=== PATIENT | female | born 1985 | race Caucasian/White ===

== ENCOUNTER 2017-11-20 19:48 | Emergency (ER) | payer BC, MEDICAID ==
[2017-11-20] MEDS ORDERED: NORMAL SALINE 1000 ML 1,000 ML IV ONE ×2 (20:34→22:00)
[2017-11-20] MEDS ORDERED: ACETAMINOPHEN 325 MG TABLET PO ONE (20:34)
[2017-11-20 21:16] LABS: HEMOGLOBIN 9.7 g/dL (12.0-15.5); MEAN CORPUSCULAR HEMOGLOBIN 31.6 pg (27.0-33.4); MEAN CORPUSCULAR HGB CONC 33.6 g/dL (32.0-36.0); MEAN CORPUSCULAR VOLUME 94 fl (80-97); PLATELET COUNT 120 10^3/uL (150-450); RED BLOOD COUNT 3.08 10^6/uL (3.72-5.28); RED CELL DISTRIBUTION WIDTH 13.9 % (11.5-14.0)
[2017-11-20 21:33] LABS: ABSOLUTE LYMPHOCYTES# (MANUAL) 0.3 10^3/uL (0.5-4.7); ABSOLUTE MONOCYTES # (MANUAL) 0.4 10^3/uL (0.1-1.4); ABSOLUTE NEUTROPHILS# (MANUAL) 10.2 10^3/uL (1.7-8.2); BASOPHILS % (MANUAL) 0 % (0-2); EOSINOPHILS % (MANUAL) 0 % (0-6); LYMPHOCYTES % (MANUAL) 3 % (13-45); MONOCYTES % (MANUAL) 4 % (3-13); SEGMENTED NEUTROPHILS % (MAN) 81 % (42-78); TOTAL CELLS COUNTED 100
[2017-11-20 21:37] LABS: OVALOCYTES SLIGHT; POIKILOCYTOSIS SLIGHT; POLYCHROMASIA SLIGHT; TOXIC GRANULATION 1+; TOXIC VACUOLATION PRESENT
[2017-11-20 21:38] LABS: BAND NEUTROPHILS % (MANUAL) 12 % (3-5); PLATELET COMMENT DECREASED
--- NOTE | 2017-11-20 22:01 | ER Document Report ---
ED General - General Chief Complaint: Pain All Over Stated Complaint: BODY PAIN, JOINT PAIN Cannot obtain history due to: Unstable vital signs, Altered mental status Notes: Patient is a 32-year-old female with a past medical history of endocarditis approximately 5 years ago that was treated with IV antibiotics but never followed through for a plan to eventually replace her valve (patient is uncertain of the exact valve that was involved) who presents with diffuse body pain. Patient admits to ongoing IV heroin abuse. The patient states that she is as well but does not know how far along she is and does not know when her last menstrual period occurred. She is unable to provide any additional meaningful history, is listless, lethargic, extremely ill in appearance. TRAVEL OUTSIDE OF THE [place] IN LAST 30 DAYS: No - Related Data Allergies/Adverse Reactions: vancomycin Allergy (Verified 06/25/16 02:39) Past Medical History - General Information source: Patient - Social History Smoking Status: Current Every Day Smoker Frequency of alcohol use: Social Drug Abuse: Heroin Lives with: Spouse/Significant other Family History: Reviewed & Not Pertinent Patient has suicidal ideation: No Patient has homicidal ideation: No Renal/ Medical History: Denies: Hx Peritoneal Dialysis Review of Systems - Review of Systems Notes: Constitutional: Positive for fever. HENT: Negative for sore throat. Eyes: Negative for visual changes. Cardiovascular: Negative for chest pain. Respiratory: Positive for shortness of breath. Gastrointestinal: Negative for abdominal pain, vomiting or diarrhea. Genitourinary: Negative for dysuria. Musculoskeletal: Positive for bilateral lower extremity edema Skin: Negative for rash. Neurological: Negative for headaches, weakness or numbness. 10 point ROS negative except as marked above and in HPI. Physical Exam - Vital signs Vitals: Temp Pulse Resp BP Pulse Ox 98.8 F 119 H 18 90/45 L 96 11/20/17 19:59 11/20/17 19:59 11/20/17 19:59 11/20/17 19:59 11/20/17 19:59 Interpretation: Hypotensive, Tachycardic Notes: PHYSICAL EXAMINATION: GENERAL: Appears extremely unwell, lethargic HEAD: Atraumatic, normocephalic. EYES: Pupils equal round and reactive to light, extraocular movements intact, sclera anicteric, conjunctiva are normal. ENT: nares patent, dry oropharynx NECK: Normal range of motion, JVD is present LUNGS: Moderate tachypnea, no respiratory distress. Slightly diminished breath sounds on the right relative to the left. Diminished at the bases bilaterally. HEART: Regular tachycardia, 2 out of 6 systolic ejection murmur ABDOMEN: Soft, normoactive bowel sounds. No guarding, no rebound. No masses appreciated. EXTREMITIES: 4+ pitting edema in the bilateral lower extremities that is equal and symmetric. NEUROLOGICAL: No focal neurological deficits. Moves all extremities spontaneously and on command. PSYCH: Lethargic SKIN: Cool, clammy skin. Course - Re-evaluation Re-evalutation: 11/20/17 22:05 Patient presents extremely ill in appearance, tachycardic, listless, hypotensive , dehydrated on examination. Bedside ultrasound of her abdomen does reveal that she has at least a 20 week gestation with active heart rate and movement. The patient has received no care for this and she is unaware how she currently is. She continues to actively abuse IV heroin. Patient has 4+ pitting edema in the bilateral lower extremities extremely worrisome for failure as her does not appear to be far enough along to present with this degree of edema. Patient is extremely scarred down virtually everywhere from her extensive history of IV drug use making IV access extremely difficult to obtain. I have obtained a left external jugular vein for access and we have begun to be able to obtain blood. A portable formal OB ultrasound will be obtained. I discussed this case with Dr. Norris the STOCK PLAN ADMINISTRATOR on-call who is recommended transfer given this patient' s poor status and high level concern for possible endocarditis. Frequent reassessments will be completed. Patient is critically ill, Will continue to monitor closely. 11/20/17 22:55 I am withholding any further fluids at this point as the patient has not been fluid responsive in terms of her mild hypotension and her chest x-ray she also has marked cardiomegaly with associated pulmonary edema. Her proBNP has returned markedly elevated at 8500 and her troponin is likewise elevated at 0.7. A bedside formal ultrasound shows that she is 21 weeks and 4 days. I suspect endocarditis in this context. Patient is allergic to vancomycin so I will therefore start linezolid and cefepime. Her blood pressure remains at an acceptable level at this time point does not yet mandate pressor support although we may have to proceed with a central line placement if she does persist with worsening vital sign abnormalities. 11/20/17 23:11 I have discussed this case with Dr. Robles the STOCK PLAN ADMINISTRATOR frontload driver at [facility] and he agrees to consult on this patient but states that given her hemodynamic instability and critical condition that he cannot manage her primarily and has requested that we discussed with the medical team. Awaiting callback. 11/20/17 23:26 I have spoken to Dr. Adeline Duron at [facility] who has accepted this patient to the ICU. I requested a rapid transfer and we will fly if able as patient continues to be very hemodynamically tenuous. Her chest x-ray does show septic infiltrates. Antibiotics have begun to infuse. Will continue to monitor closely and continue to reassess at regular intervals. 11/21/17 00:11 Patient's blood pressure has begun to deteriorate further map is currently 61. Begin norepinephrine peripherally at this time as I remain very concerned about placing a central line that would sit in the right atria with her history of likely endocarditis. The femoral line can also be considered but again I worry that a central venous catheter would rapidly become infected in the setting of endocarditis and become an additional source of infection. Given this I suspect that the risk of placing a central line at this time is outweighed by the benefits as opposed to just beginning a small amount of peripheral pressors through a well-established AC line. 11/21/17 01:02 The patient has continued to clinically deteriorate and at this point I have placed a left femoral central line as she only has 2 points of access neither of which is completely reliable for vasopressors. We have had no difficulty placing a left femoral line and I did elect the femoral site as I did not want wish to have a catheter sitting in her in the right atrium given the concern for a tricuspid-based endocarditis. We have begun to infuse norepinephrine currently at 12 mcg/min however patient continues to be hypotensive current pressure 78/51. Will begin to up titrate the norepinephrine to maintain a goal mean arterial pressure of 60. I contacted [facility] and notified them of the patient's deteriorating status and requested a consultation with the intensive care physician. [id number] have discussed this case with the php mysql web developer at [facility] Dr. Robertson and updated him on the patient's deterioration. He has accepted the patient. Patient has intermittent periods of confusion, struggles to answer orientation questions intermittently but after multiple repeat questioning sessions she generally comes to the correct answer. She continues to protect her airway. On 15 mcg/min of norepinephrine maintaining a map of 65. She remains very critically ill and will continue to monitor 11/21/17 03:01 Patient is now withdrawing from her opiates. She is diaphoretic, uncomfortable , more tachycardic and her pressure is rising slightly relative to prior. Will give her 8 mg of sublingual Suboxone which is what she has been taking for withdrawals. I believe this is the most appropriate option, least likely to cause hemodynamic instability. Transport is here for patient transfer. They have been informed of this plan and will transport the patient. Although she is unstable, transport is appropriate on an intensive care truck at this time. - Vital Signs Vital signs: Temp Pulse Resp BP Pulse Ox 98.0 F 119 H 30 H 99/65 L 97 11/21/17 03:06 11/20/17 19:59 11/21/17 03:10 11/21/17 03:12 11/21/17 03:10 - Laboratory Result Diagrams: 11/20/17 21:00 11/20/17 22:00 Laboratory results interpreted by me: 11/20/17 11/20/17 11/20/17 21:00 21:00 22:00 WBC 11.0 H RBC 3.08 L Hgb 9.7 L Hct 29.0 L Plt Count 120 L Seg Neuts % (Manual) 81 H Band Neutrophils % 12 H Lymphocytes % (Manual) 3 L Abs Neuts (Manual) 10.2 H Abs Lymphs (Manual) 0.3 L Sodium 125.6 L Chloride 96 L BUN 29 H Calcium 7.5 L Direct Bilirubin 0.6 H AST 45 H Creatine Kinase NT-Pro-B Natriuret Pep Total Protein 5.8 L Albumin 2.4 L Lipase < 10.0 L Serum HCG, Qual POSITIVE H Urine Protein Urine Blood Urine Urobilinogen Ur Leukocyte Esterase Urine Ascorbic Acid 11/20/17 11/20/17 11/20/17 22:00 22:00 23:00 WBC RBC Hgb Hct Plt Count Seg Neuts % (Manual) Band Neutrophils % Lymphocytes % (Manual) Abs Neuts (Manual) Abs Lymphs (Manual) Sodium Chloride BUN Calcium Direct Bilirubin AST Creatine Kinase 28 L NT-Pro-B Natriuret Pep 8530 H Total Protein Albumin Lipase Serum HCG, Qual Urine Protein 30 H Urine Blood MODERATE H Urine Urobilinogen 4.0 H Ur Leukocyte Esterase SMALL H Urine Ascorbic Acid 20 H - Diagnostic Test Radiology reviewed: Image reviewed, Reports reviewed Radiology results interpreted by me: 11/20/17 23:27 Chest x-ray: Cardiomegaly, septic emboli appearance to the right lung as well as pulmonary edema bilaterally. - EKG Interpretation by Me Additional EKG results interpreted by me: 11/20/17 23:27 Sinus tachycardia. Rate 113. No ST elevations or depressions. Incomplete right bundle branch block. QTC 450. Procedures - Central Line Left Femoral Consent obtained: No - Emergent, AMS Central line pre-insertion: Sterile PPE donned, Chloraprep applied, Sterile drapes applied Central line lumen type: Triple Anesthetic type: 1% Lidocaine mL's of anesthesia: 2 Ultrasound guided: Yes CM at insertion site: 30 Line secured with sutures: Yes Central line post-insertion: Blood return from lumens, Biopatch applied, Sutured , Sterile dressing applied Number of attempts: 1 Complications: No Critical Care Note - Critical Care Note Total time excluding time spent on procedures (mins): 106 Comments: Critical care time spent obtaining history from patient or surrogate, discussions with consultants, development of treatment plan with patient or surrogate, evaluation of patient's response to treatment, examination of patient , ordering and performing treatments and interventions, ordering and review of laboratory studies, re-evaluation of patient's condition, ordering and review of radiographic studies and review of old charts Discharge - Discharge Clinical Impression: Second trimester , Heroin abuse Endocarditis Qualifiers: Endocarditis type: infective Infective endocarditis organism: bacterial Chronicity: acute Qualified Code(s): I33.0 - Acute and subacute infective endocarditis Pneumonia Qualifiers: Pneumonia type: due to unspecified organism Laterality: right Lung location: unspecified part of lung Qualified Code(s): J18.9 - Pneumonia, unspecified organism Sepsis Qualifiers: Sepsis type: sepsis due to unspecified organism Qualified Code(s): A41.9 - Sepsis, unspecified organism Condition: Critical Disposition: [facility] Referrals: EMANUEL MCGARRY MD [Primary Care Provider] - Follow up as needed
[2017-11-20] MEDS ORDERED: CEFEPIME 2 GM/D5W RTU 2 GM/50 ML RTUPB IV ONE (22:04)
[2017-11-20 22:27] LABS: ALANINE AMINOTRANSFERASE 39 U/L (9-52); ALBUMIN 2.4 g/dL (3.5-5.0); ALKALINE PHOSPHATASE 100 U/L (38-126); ANION GAP 5 (5-19); ASPARTATE AMINO TRANSFERASE 45 U/L (14-36); BILIRUBIN,DIRECT 0.6 mg/dL (0.0-0.4); BILIRUBIN,TOTAL 0.8 mg/dL (0.2-1.3); BLOOD UREA NITROGEN 29 mg/dL (7-20); CALCIUM 7.5 mg/dL (8.4-10.2); CARBON DIOXIDE 25 mmol/L (22-30); CHLORIDE 96 mmol/L (98-107); GLUCOSE 96 mg/dL (75-110); LIPASE < 10.0 U/L (23-300); POTASSIUM 4.4 mmol/L (3.6-5.0); SODIUM 125.6 mmol/L (137-145); TOTAL PROTEIN 5.8 g/dL (6.3-8.2)
[2017-11-20 22:40] LABS: TROPONIN I 0.729 ng/mL
[2017-11-20] MEDS ORDERED: LINEZOLID 300 ML IV ONE (22:47)
--- NOTE | 2017-11-20 22:55 | RADIOLOGY REPORT (SQ) ---
EXAM DESCRIPTION: CHEST SINGLE VIEW COMPLETED DATE/TIME: 11/20/2017 10:27 pm REASON FOR STUDY: fever, cough COMPARISON: None. EXAM PARAMETERS: NUMBER OF VIEWS: One view. TECHNIQUE: Single frontal radiographic view of the chest acquired. RADIATION DOSE: NA LIMITATIONS: None. FINDINGS: LUNGS AND PLEURA: Patchy airspace-nodular opacities are present in the right lung. No de nse consolidation. No pneumothorax. No significant pleural effusion. MEDIASTINUM AND HILAR STRUCTURES: No masses. Contour normal. HEART AND VASCULAR STRUCTURES: Heart upper limits of normal in size. Normal vasculature. BONES: No acute findings. HARDWARE: None in the chest. OTHER: No other significant finding. IMPRESSION: Patchy airspace-nodular opacities are present in the right lung. TECHNICAL DOCUMENTATION: JOB ID: [id number] [place]-72 2010 [employer]- All Rights Reserved Reading location - IP/workstation name: [email or web address]
--- NOTE | 2017-11-20 23:14 | RADIOLOGY REPORT (SQ) ---
EXAM DESCRIPTION: U/S OB LIMITED COMPLETED DATE/TIME: 11/20/2017 10:59 pm REASON FOR STUDY: eval , portable, no care COMPARISON: None. TECHNIQUE: Limited transabdominal grayscale ultrasound for evaluation of specific requested obstetri yair parameters. LIMITATIONS: None. FINDINGS: Live intrauterine measuring 21 weeks 4 days. BONITA 03/29/2018. EFW 470 g. Anterior heterogeneous placenta. CERVICAL LENGTH: 2.8 cm Closed. KYLE: Normal. LVP 5.7 cm. . FHR: 163 beats per minute. PRESENTATION: Breech OTHER: No other significant findings. IMPRESSION: LIMITED OBSTETRICAL ULTRASOUND WITH MEASURED PARAMETERS DELINEATED ABOVE. Trimester of : Second trimester - 13 weeks 1 day to 27 weeks 6 days. TECHNICAL DOCUMENTATION: JOB ID: [id number] [place]-[id number] 2010 [employer]- All Rights Reserved Reading location - IP/workstation name: [email or web address]
[2017-11-20 23:22] LABS: APPEARANCE,URINE CLOUDY; BILIRUBIN,URINE NEGATIVE (NEGATIVE); COLOR,URINE AMBER; GLUCOSE, URINE NEGATIVE (NEGATIVE); KETONES,URINE NEGATIVE (NEGATIVE); LEUKOCYTE ESTERASE,URINE SMALL (NEGATIVE); NITRITE,URINE NEGATIVE (NEGATIVE); PROTEIN,URINE 30 mg/dL (NEGATIVE); URINE SPECIFIC GRAVITY 1.019
--- NOTE | 2017-11-20 23:53 | EKG REPORT ---
SEVERITY:- ABNORMAL ECG - SINUS TACHYCARDIA INCOMPLETE RIGHT BUNDLE BRANCH BLOCK : Confirmed by: Marina Francis 20-Nov-2017 23:52:46
[2017-11-21] MEDS ORDERED: LINEZOLID 600 MG TABLET ONE (00:08)
[2017-11-21] MEDS ORDERED: DEXTROSE 5%-WATER 250 ML with NOREPINEPHRINE BITARTRATE 4 MG IV PRN ×2 (00:11)
[2017-11-21] MEDS ORDERED: LINEZOLID 300 ML IV ONE (00:12)
[2017-11-21] MEDS ORDERED: NOREPINEPHRINE BITARTRATE INJ/PF 4 MG/4 ML SDV IV ONE (00:35)
[2017-11-21] MEDS ORDERED: BUPRENORPHINE HCL 2 MG SUBLINGUAL TABLET SL ONE (02:58)
[2017-11-21 03:23] VITALS: BP 99/65
== END 2017-11-21 03:20 | disposition short-term general hospital (02) ==
LOC: ER 19:48
PROC: 06HV33Z Insertion of Infusion Device into Left Foot Vein, Percutaneous Approach (ICD-10-PCS; principal; 2017-11-20)
PROC: 3E033XZ Introduction of Vasopressor into Peripheral Vein, Percutaneous Approach (ICD-10-PCS; 2017-11-20)
DX: O98.812 Other maternal infectious and parasitic diseases complicating pregnancy, second trimester (principal); A41.9 Sepsis, unspecified organism; O99.412 Diseases of the circulatory system complicating pregnancy, second trimester; I33.0 Acute and subacute infective endocarditis; O99.512 Diseases of the respiratory system complicating pregnancy, second trimester; J18.9 Pneumonia, unspecified organism; O99.282 Endocrine, nutritional and metabolic diseases complicating pregnancy, second trimester; E86.0 Dehydration; O99.332 Smoking (tobacco) complicating pregnancy, second trimester; O99.322 Drug use complicating pregnancy, second trimester; F11.23 Opioid dependence with withdrawal; O12.02 Gestational edema, second trimester; O26.52 Maternal hypotension syndrome, second trimester; Z3A.21 21 weeks gestation of pregnancy; Z88.1 Allergy status to other antibiotic agents
CPT/HCPCS: 36556; 93005; 99285; 96361; 96365; 96366; 96367; 96368; 36415; 87040; 87086; 82550; 83690; 84703; 85025; 87077; 87088; 80053; 81001; 84484; 86701; 87186; 83605; 83880; 71045; 76815; 93010; C1751; C1769; J2020; J3490; J7060; J7030; J0692; J0571